=== PATIENT | female | born 1990 | race Hispanic/Latino ===

== ENCOUNTER 2020-03-20 19:53 | Emergency (ER) | payer SELFPAY ==
[~2020-03-20] VITALS: Ht 162.6 cm; Wt 131.1 kg
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
== END 2020-03-20 22:40 | disposition home or self-care (01) ==
LOC: ER 19:53
DX: S60.222A Contusion of left hand, initial encounter (principal); R07.9 Chest pain, unspecified; V43.52XA Car driver injured in collision with other type car in traffic accident, initial encounter; Y92.488 Other paved roadways as the place of occurrence of the external cause; E11.9 Type 2 diabetes mellitus without complications
CPT/HCPCS: 81025; 99284